=== PATIENT | male | born 1965 | race African-American/Black ===

== ENCOUNTER 2023-05-13 10:38 | Day surgery (SDC) | payer BC ==
[~2023-05-13] VITALS: Ht 185.4 cm; Wt 79.8 kg
[2023-05-13 11:45] VITALS: O2SAT 100
[2023-05-13] MEDS ORDERED: ACETAMINOPHEN I.V. 1000 MG 100 ML IV ONE (12:35)
[2023-05-13] MEDS ORDERED: fentaNYL CITRATE/PF 100 MCG/2 ML AMP ONE (12:36)
[2023-05-13] MEDS ORDERED: MIDAZOLAM HCL 2 MG/2 ML VIAL (VERSED) ONE (12:36)
[2023-05-13] MEDS ORDERED: SEVOFLURANE 15 MIN GAS INH ONE (13:11)
[2023-05-13] MEDS ORDERED: SUCCINYLCHOLINE CHLORIDE 20 MG/ML(QUELICIN) ONE (13:11)
[2023-05-13] MEDS ORDERED: ONDANSETRON HCL 4 MG/2 ML VIAL ONE (13:11)
[2023-05-13] MEDS ORDERED: LR 1,000 ML IV.SOLN IV ONE (13:11)
[2023-05-13] MEDS ORDERED: NS 1000 ML IV.SOLN IV ONE (13:11)
[2023-05-13] MEDS ORDERED: PROPOFOL 200MG/ 20ML VIAL (DIPRIVAN) IV ONE (13:11)
[2023-05-13] MEDS ORDERED: BUPIVACAINE /PF 0.25% 30 ML VIAL INJ ONE (13:11)
[2023-05-13] MEDS ORDERED: LIDOCAINE 1% 10 MG/ML, 20 ML MDV ONE (13:11)
[2023-05-13] MEDS ORDERED: fentaNYL CITRATE/PF 100 MCG/2 ML AMP IVP PRN (14:45)
[2023-05-13] MEDS ORDERED: ONDANSETRON HCL 4 MG/2 ML VIAL IVP PRN (14:45)
[2023-05-13] MEDS ORDERED: HYDROmorphone 1 MG/ML INJ. CARTRIDGE IVP PRN ×2 (14:45)
[2023-05-13] MEDS ORDERED: LR 1,000 ML IV ONE (14:45)
[2023-05-13 16:36] VITALS: BP_SYST 131; PULSE 90; RESP 16; TEMP 98
== END 2023-05-13 16:25 | disposition home or self-care (01) ==
LOC: SDS 10:38 → SMU 10:40 → SDS 16:25
PROVIDERS: ATTEND Surgery
DX: K64.8 Other hemorrhoids (principal); I12.9 Hypertensive chronic kidney disease with stage 1 through stage 4 chronic kidney disease, or unspecified chronic kidney disease; N18.9 Chronic kidney disease, unspecified; K21.9 Gastro-esophageal reflux disease without esophagitis; F32.A Depression, unspecified; Z79.899 Other long term (current) drug therapy
CPT/HCPCS: 46260; 87081; 88304; J3490; J2001; J3465; J2405; J2704; J0330; J3010; J7120; J7030; J0131